=== PATIENT | female | born 1955 | race Hispanic/Latino ===

== ENCOUNTER 2018-10-16 19:25 | Emergency (ER) | payer MEDICARE ==
[~2018-10-16] VITALS: Ht 154.9 cm; Wt 99.8 kg
[2018-10-16] MEDS ORDERED: CLONIDINE HCL 0.2 MG TAB PO NR (20:00)
[2018-10-16] MEDS ORDERED: LISINOPRIL 20 MG TAB PO NR (20:00)
[2018-10-16] MEDS ORDERED: NORVASC5 MG PO (21:56)
[2018-10-16 21:57] VITALS: BP 129/52
== END 2018-10-16 22:05 | disposition home or self-care (01) ==
LOC: ER 19:25
DX: I16.0 Hypertensive urgency (principal); E66.9 Obesity, unspecified; Z68.41 Body mass index [BMI] 40.0-44.9, adult; T46.4X6A Underdosing of angiotensin-converting-enzyme inhibitors, initial encounter; T50.2X6A Underdosing of carbonic-anhydrase inhibitors, benzothiadiazides and other diuretics, initial encounter; E11.9 Type 2 diabetes mellitus without complications
CPT/HCPCS: 36415; 82948; 99283

== ENCOUNTER 2019-01-21 22:50 | Emergency (ER) | payer MEDICARE ==
[~2019-01-21] VITALS: Ht 154.9 cm; Wt 99.8 kg
[~2019-01-21 22:50] MED LIST: NORVASC5 MG PO
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
--- OUTSIDE RECORDS SUMMARY | 2019-01-21 22:54 | XMS REPORT | Summary of Care ---
Author Author [facility] Organization [facility] Address Unknown Phone Unavailable Encounter HQ Soha(ARIK) [id number] Date(s): 12/24/18 - 12/25/18 [facility] [address] [employer] provided by [employer] [place] [address]- Discharge Disposition: Home or Self Care Attending Physician: Beti Ma MD Admitting Physician: Beti Ma MD Vital Signs 1 2 3 Most recent to oldest [Reference Range]: 154.94 cm (12/25/18 1:28 AM) 152.4 cm (12/24/18 8:53 PM) Height 97.4 DegF (12/25/18 11:22 AM) 97.2 DegF (12/25/18 7:13 AM) 98.2 DegF (12/25/18 3:20 AM) Temperature Oral [96.4-99.1 DegF] 137/69 mmHg (12/25/18 11:22 AM) 144/64 mmHg *HI* (12/25/18 7:13 AM) 130/69 mmHg (12/25/18 3:20 AM) Blood Pressure [90-140/60-90 mmHg] 18 BRMIN (12/25/18 11:22 AM) 18 BRMIN (12/25/18 7:13 AM) 18 BRMIN (12/25/18 3:20 AM) Respiratory Rate [14-20 BRMIN] 73 bpm (12/25/18 11:22 AM) 69 bpm (12/25/18 7:13 AM) 74 bpm (12/25/18 3:20 AM) Peripheral Pulse Rate [60-100 bpm] 94.545 kg (12/25/18 1:28 AM) 93.182 kg (12/24/18 8:53 PM) Weight 39.38 m2 (12/25/18 1:28 AM) 40.12 m2 (12/24/18 8:53 PM) Body Mass Index Problem List No data available for this section Allergies, Adverse Reactions, Alerts No Known Medication Allergies Medications amLODIPine 10 mg, Route: PO, Drug form: TAB, Daily, Dosing Weight 94.545, kg, Start date: 0 12/25/18 9:00:00 CDT, Duration: 30 day, Stop date: 01/23/19 9:00:00 CDT Start Date: 12/25/18 Stop Date: 12/25/18 Status: Canceled amLODIPine 10 mg oral tablet 10 mg=1 tab, PO, Daily, # 30 tab, 0 Refill(s) Start Date: 12/25/18 Status: Ordered cloNIDine 0.1 mg=1 tab, PO, BID, # 30 tab, 0 Refill(s) Start Date: 12/25/18 Stop Date: 01/09/19 Status: Ordered cloNIDine 0.1 mg, 1 tab, Route: PO, Drug form: TAB, BID, Dosing Weight 94.545, kg, Start d ate: 12/25/18 9:00:00 CDT, Duration: 30 day, Stop date: 01/23/19 17:00:00 CDT Notes: (Same As: Gorge) Start Date: 12/25/18 Stop Date: 12/25/18 Status: Discontinued Dextrose 50% Syringe 12.5 gm, 25 mL, Route: IVP, Drug Form: INJ, Dosing Weight 94.545, kg, PRN, PRN B lood Glucose Results, Start date: 12/25/18 2:07:00 CDT, Duration: 30 day, Stop d ate: 01/24/19 2:06:00 CDT Start Date: 12/25/18 Stop Date: 12/25/18 Status: Discontinued Dextrose 50% Syringe 25 gm, 50 mL, Route: IVP, Drug Form: INJ, Dosing Weight 94.545, kg, PRN, PRN Blo od Glucose Results, Start date: 12/25/18 2:07:00 CDT, Duration: 30 day, Stop james e: 01/24/19 2:06:00 CDT Start Date: 12/25/18 Stop Date: 12/25/18 Status: Discontinued famotidine 20 mg, 1 tab, Route: PO, Drug form: TAB, Q12H, Start date: 12/25/18 9:00:00 CDT, Duration: 30 day, Stop date: 01/23/19 21:00:00 CDT Notes: (Same as: Pepcid) Start Date: 12/25/18 Stop Date: 12/25/18 Status: Discontinued glucagon 1 mg, Route: IM, Drug form: PDR/INJ, PRN, Dosing Weight 94.545, kg, PRN Blood Gl ucose Results, Start date: 12/25/18 2:07:00 CDT, Duration: 30 day, Stop date: 2:06:00 CDT Start Date: 12/25/18 Stop Date: 12/25/18 Status: Discontinued heparin 5,000 unit, 1 mL, Route: SUB-Q, Drug form: INJ, Q8H, Dosing Weight 94.545, kg, S tart date: 12/25/18 8:00:00 CDT, Duration: 30 day, Stop date: 01/24/19 0:00:00 C DT Notes: porcine heparin Start Date: 12/25/18 Stop Date: 12/25/18 Status: Discontinued hydrALAZINE 50 mg oral tablet 50 mg=1 tab, PO, BID, 0 Refill(s) Start Date: 12/25/18 Status: Ordered hydrALAZINE 50 mg oral tablet 50 mg, 1 tab, Route: PO, Drug form: TAB, BID, Dosing Weight 94.545, kg, Start da te: 12/25/18 9:00:00 CDT, Duration: 30 day, Stop date: 01/23/19 17:00:00 CDT Start Date: 12/25/18 Stop Date: 12/25/18 Status: Canceled insulin lispro 4 unit, 0.04 mL, Route: SUB-Q, Drug form: SOLN, Bedtime, Dosing Weight 94.545, k g, PRN Blood Glucose Results, Start date: 12/25/18 2:07:00 CDT, Duration: 30 day , Stop date: 01/24/19 2:06:00 CDT Notes: (Same as: Humalog) Roll in palms of hands gently; Do not shake vigorously . WASTE: F/P - Black; E - Municipal Trash BinStable for 28 days at room [facility].Expires in days from Date Start Date: 12/25/18 Stop Date: 12/25/18 Status: Discontinued insulin lispro 5 unit, 0.05 mL, Route: SUB-Q, Drug form: SOLN, TID-Before Meals, Dosing Weight 94.545, kg, PRN Blood Glucose Results, Start date: 12/25/18 2:07:00 CDT, Duratio n: 30 day, Stop date: 01/24/19 2:06:00 CDT Notes: (Same as: Humalog) Roll in palms of hands gently; Do not shake vigorously . WASTE: F/P - Black; E - Municipal Trash BinStable for 28 days at room [facility].Expires in days from Date Start Date: 12/25/18 Stop Date: 12/25/18 Status: Discontinued insulin lispro 2 unit, 0.02 mL, Route: SUB-Q, Drug form: SOLN, Bedtime, Dosing Weight 94.545, k g, PRN Blood Glucose Results, Start date: 12/25/18 2:07:00 CDT, Duration: 30 day , Stop date: 01/24/19 2:06:00 CDT Notes: (Same as: Humalog) Roll in palms of hands gently; Do not shake vigorously . WASTE: F/P - Black; E - Municipal Trash BinStable for 28 days at room [facility].Expires in days from Date Start Date: 12/25/18 Stop Date: 12/25/18 Status: Discontinued insulin lispro 3 unit, 0.03 mL, Route: SUB-Q, Drug form: SOLN, Bedtime, Dosing Weight 94.545, k g, PRN Blood Glucose Results, Start date: 12/25/18 2:07:00 CDT, Duration: 30 day , Stop date: 01/24/19 2:06:00 CDT Notes: (Same as: Humalog) Roll in palms of hands gently; Do not shake vigorously . WASTE: F/P - Black; E - Municipal Trash BinStable for 28 days at room [facility].Expires in days from Date Start Date: 12/25/18 Stop Date: 12/25/18 Status: Discontinued insulin lispro 1 unit, 0.01 mL, Route: SUB-Q, Drug form: SOLN, Bedtime, Dosing Weight 94.545, k g, PRN Blood Glucose Results, Start date: 12/25/18 2:07:00 CDT, Duration: 30 day , Stop date: 01/24/19 2:06:00 CDT Notes: (Same as: Humalog) Roll in palms of hands gently; Do not shake vigorously . WASTE: F/P - Black; E - Municipal Trash BinStable for 28 days at room [facility].Expires in days from Date Start Date: 12/25/18 Stop Date: 12/25/18 Status: Discontinued insulin lispro 1 unit, 0.01 mL, Route: SUB-Q, Drug form: SOLN, TID-Before Meals, Dosing Weight 94.545, kg, PRN Blood Glucose Results, Start date: 12/25/18 2:07:00 CDT, Duratio n: 30 day, Stop date: 01/24/19 2:06:00 CDT Notes: (Same as: Humalog) Roll in palms of hands gently; Do not shake vigorously . WASTE: F/P - Black; E - Municipal Trash BinStable for 28 days at room [facility].Expires in days from Date Start Date: 12/25/18 Stop Date: 12/25/18 Status: Discontinued insulin lispro 2 unit, 0.02 mL, Route: SUB-Q, Drug form: SOLN, TID-Before Meals, Dosing Weight 94.545, kg, PRN Blood Glucose Results, Start date: 12/25/18 2:07:00 CDT, Duratio n: 30 day, Stop date: 01/24/19 2:06:00 CDT Notes: (Same as: Humalog) Roll in palms of hands gently; Do not shake vigorously . WASTE: F/P - Black; E - Municipal Trash BinStable for 28 days at [facility].Expires in days from Date Start Date: 12/25/18 Stop Date: 12/25/18 Status: Discontinued insulin lispro 3 unit, 0.03 mL, Route: SUB-Q, Drug form: SOLN, TID-Before Meals, Dosing Weight 94.545, kg, PRN Blood Glucose Results, Start date: 12/25/18 2:07:00 CDT, Duratio n: 30 day, Stop date: 01/24/19 2:06:00 CDT Notes: (Same as: Humalog) Roll in palms of hands gently; Do not shake vigorously . WASTE: F/P - Black; E - Municipal Trash BinStable for 28 days at [facility].Expires in days from Date Start Date: 12/25/18 Stop Date: 12/25/18 Status: Discontinued insulin lispro 4 unit, 0.04 mL, Route: SUB-Q, Drug form: SOLN, TID-Before Meals, Dosing Weight 94.545, kg, PRN Blood Glucose Results, Start date: 12/25/18 2:07:00 CDT, Duratio n: 30 day, Stop date: 01/24/19 2:06:00 CDT Notes: (Same as: Humalog) Roll in palms of hands gently; Do not shake vigorously . WASTE: F/P - Black; E - Municipal Trash BinStable for 28 days at [facility].Expires in days from Date Start Date: 12/25/18 Stop Date: 12/25/18 Status: Discontinued Lactated Ringers (Bolus) IV 500 mL, 500 ml/hr, Infuse Over: 1 hr, Route: IV, 500, Drug form: INJ, ONCE, Prio rity: STAT, Dosing Weight 94.545 kg, Start date: 12/25/18 2:34:00 CDT, Stop date : 12/25/18 2:34:00 CDT Start Date: 12/25/18 Stop Date: 12/25/18 Status: Completed metFORMIN 1,000 mg, PO, BID, 0 Refill(s) Start Date: 12/25/18 Status: Ordered metoclopramide 5 mg oral tablet See Instructions, Take 1/2 tab BID, PRN, 0 Refill(s) Start Date: 12/25/18 Status: Ordered QUEtiapine 25 mg, 1 tab, Route: PO, Drug form: TAB, Bedtime, Dosing Weight 94.545, kg, Star t date: 12/25/18 21:00:00 CDT, Duration: 30 day, Stop date: 01/23/19 21:00:00 CD T Notes: (Same as: SEROquel) Start Date: 12/25/18 Stop Date: 12/25/18 Status: Canceled QUEtiapine 25 mg oral tablet 25 mg=1 tab, PO, Bedtime, 0 Refill(s) Start Date: 12/25/18 Status: Ordered ranitidine 150 mg oral tablet 150 mg, 1 tab, Route: PO, Drug form: TAB, BID, Dosing Weight 94.545, kg, Start d ate: 12/25/18 9:00:00 CDT, Duration: 30 day, Stop date: 01/23/19 17:00:00 CDT Start Date: 12/25/18 Stop Date: 12/25/18 Status: Deleted ranitidine 150 mg oral tablet 150 mg=1 tab, PO, BID, PRN for gastritis, # 20 tab, 0 Refill(s) Start Date: 12/25/18 Stop Date: 01/04/19 Status: Ordered Tylenol 650 mg, Route: PO, Drug form: TAB, ONCE, Dosing Weight 93.182, kg, Priority: STA T, Start date: 12/25/18 0:08:00 CDT, Stop date: 12/25/18 0:08:00 CDT Start Date: 12/25/18 Stop Date: 12/25/18 Status: Completed Vitamin D2 50,000 IntlUnit, 1 cap, Route: PO, Drug form: CAP, QMon, Dosing Weight 94.545, k g, Start date: 12/27/18 9:00:00 CDT, Duration: 30 day, Stop date: 01/24/19 9:00: 00 CDT Notes: (Same as: Vitamin D) "Do Not Crush" Start Date: 12/27/18 Stop Date: 12/25/18 Status: Canceled Vitamin D2 50,000 intl units oral capsule 50,000 IntlUnit=1 cap, PO, QMon, 0 Refill(s) Start Date: 12/25/18 Status: Ordered Results 1 2 3 Most recent to oldest [Reference Range]: 2.8 K/CMM (12/24/18 10:45 PM) Neutrophils # [1.5-8.1 K/CMM] 2.8 K/CMM (12/24/18 10:45 PM) Lymphocytes # [1.0-5.5 K/CMM] 0.6 K/CMM (12/24/18 10:45 PM) Monocytes # [0.0-0.8 K/CMM] 0.3 K/CMM (12/24/18 10:45 PM) Eosinophils # [0.0-0.5 K/CMM] 85 mL/min/1.73m2 1 *NA* (12/25/18 4:43 AM) 52 mL/min/1.73m2 2 *NA* (12/24/18 10:45 PM) eGFR 8.1 mEq/L *LOW* (12/25/18 4:43 AM) 8.9 mEq/L *LOW* (12/24/18 10:45 PM) AGAP [10.0-20.0 mEq/L] 0.5 % (12/24/18 10:45 PM) Basophils [0.0-1.0 %] 25 mg/dL *HI* (12/25/18 4:43 AM) 28 mg/dL *HI* (12/24/18 10:45 PM) BUN [7-22 mg/dL] 8.7 mg/dL (12/25/18 4:43 AM) 9.3 mg/dL (12/24/18 10:45 PM) Calcium Lvl [8.5-10.5 mg/dL] 111 mEq/L *HI* (12/25/18 4:43 AM) 109 mEq/L (12/24/18 10:45 PM) Chloride Lvl [95-109 mEq/L] 27 mEq/L (12/25/18 4:43 AM) 30 mEq/L (12/24/18 10:45 PM) CO2 [24-32 mEq/L] 0.74 mg/dL (12/25/18 4:43 AM) 1.12 mg/dL (12/24/18 10:45 PM) Creatinine Lvl [0.50-1.40 mg/dL] 5.1 % *HI* (12/24/18 10:45 PM) Eosinophils [0.0-4.0 %] 135 mg/dL *HI* (12/25/18 4:43 AM) 176 mg/dL *HI* (12/24/18 10:45 PM) Glucose Lvl [70-99 mg/dL] 31.8 % *LOW* (12/24/18 10:45 PM) Hct [36.0-48.0 %] 10.8 g/dL *LOW* (12/24/18 10:45 PM) Hgb [12.0-16.0 g/dL] 0.91 (12/24/18 10:45 PM) INR [0.85-1.17] 4.1 mEq/L (12/25/18 4:43 AM) 4.9 mEq/L (12/24/18 10:45 PM) Potassium Lvl [3.5-5.1 mEq/L] 42.4 % *HI* (12/24/18 10:45 PM) Lymphocytes [20.0-40.0 %] 30.4 pg (12/24/18 10:45 PM) MCH [27.0-31.0 pg] 33.9 g/dL (12/24/18 10:45 PM) MCHC [32.0-36.0 g/dL] 89.7 fL (12/24/18 10:45 PM) MCV [80.0-98.0 fL] 8.5 % (12/24/18 10:45 PM) Monocytes [2.0-12.0 %] 8.3 fL (12/24/18 10:45 PM) MPV [7.4-10.4 fL] 142 mEq/L (12/25/18 4:43 AM) 143 mEq/L (12/24/18 10:45 PM) Sodium Lvl [135-145 mEq/L] 242 K/CMM (12/24/18 10:45 PM) Platelet [133-450 K/CMM] 43.5 % *LOW* (12/24/18 10:45 PM) Segs [45.0-75.0 %] 12.1 seconds (12/24/18 10:45 PM) PT [12.0-14.7 seconds] 31.5 seconds (12/24/18 10:45 PM) PTT [22.9-35.8 seconds] 3.55 M/CMM *LOW* (12/24/18 10:45 PM) RBC [4.20-5.40 M/CMM] 14.4 % (12/24/18 10:45 PM) RDW [11.5-14.5 %] 0.03 ng/mL (12/25/18 10:50 AM) 0.03 ng/mL (12/25/18 4:43 AM) 0.02 ng/mL (12/24/18 10:45 PM) Troponin-I [0.00-0.40 ng/mL] Occasional /HPF (12/24/18 9:13 PM) UA Bacteria [None Seen /HPF] Negative *NA* (12/24/18 9:13 PM) UA Bili [Negative] Moderate *ABN* (12/24/18 9:13 PM) UA Blood [Negative] Yellow *NA* (12/24/18 9:13 PM) UA Color [Yellow] 100 mg/dL *ABN* (12/24/18 9:13 PM) UA Glucose [Negative mg/dL] Negative *NA* (12/24/18 9:13 PM) UA Ketones [Negative] Negative (12/24/18 9:13 PM) UA Leuk Est [Negative] Negative (12/24/18 9:13 PM) UA Nitrite [Negative] 6.0 (12/24/18 9:13 PM) UA pH [5.0-8.0] 100 mg/dL *ABN* (12/24/18 9:13 PM) UA Protein [Negative mg/dL] 6-10 /HPF *ABN* (12/24/18 9:13 PM) UA RBC [0-2 /HPF] 1.020 (12/24/18 9:13 PM) UA Spec Grav [<=1.030] Moderate /LPF *ABN* (12/24/18 9:13 PM) UA Sq Epi [Few /LPF] Clear (12/24/18 9:13 PM) UA Turbidity [Clear] 0.2 EU/dL (12/24/18 9:13 PM) UA Urobilinogen [0.1-1.0 EU/dL] 0-2 /HPF (12/24/18 9:13 PM) UA WBC [None Seen /HPF] 6.5 K/CMM (12/24/18 10:45 PM) WBC [3.7-10.4 K/CMM] 1Result Comment: The eGFR is calculated using the [...] from the National Kidney Disease Education Program ( NKDEP) which additionally recommends that when the eGFR is used in patients with extremes of body mass index for purposes of drug dosing, the eGFR should be mul tiplied by the estimated BMI. 2Result Comment: The eGFR is calculated using the [...] from the National Kidney Disease Education Program ( NKDEP) which additionally recommends that when the eGFR is used in patients with extremes of body mass index for purposes of drug dosing, the eGFR should be mul tiplied by the estimated BMI. Immunizations Given and Recorded Vaccine Date Status Refusal Reason pneumococcal 13-valent vaccine 12/25/18 Given Procedures No data available for this section Social History Social History Type Response Substance Abuse Use: None. Alcohol Never Smoking Status Never smoker; Exposure to Tobacco Smoke None; Cigarette Smoking Last 365 Days No; Reg Smoking Cessation Counseling No entered on: 12/25/18 Assessment and Plan Extracted from: Title: History and Physical Author: Traci Parmar MD Date: 12/25/18 63 yo with pmh niddm2, depression, and cataracts admitted for evaluation of chest pain. 1.Chest pain(R07.9) telemetry monitoring. trend troponins. admission ekg without acute ischemic changes. 2.Acute kidney injury(N17.9) LR bolus. ua not c/w uti. monitor renal function. 3.Diabetes mellitus with hyperglycemia(E11.65) ssi & accuchecks. holding home glipizide and metformin. 4.Depression(F32.9) seroquel 5.Hypertension(I10) resume home clonidine. holding home amlodipine and hydralazine. monitor bp. heparin home on discharge.
--- OUTSIDE RECORDS SUMMARY | 2019-01-21 22:54 | XMS REPORT ---
Author [facility] Address Unknown Phone Unavailable Care Team Providers Care End User Support Specialist Name Role Phone Unavailable Unavailable Payers Payer Name Policy Type Policy Number Effective Date Expiration Date Problems This patient has no known problems. Allergies, Adverse Reactions, Alerts This patient has no known allergies or adverse reactions. Medications This patient has no known medications. Encounters Start Date/Time End Date/Time Encounter Type Admission Type Attending [facility] Care Facility Care Department Encounter ID 2019-01-15 18:10:00 2019-01-15 18:10:00 Outpatient [facility] [id number] 2018-12-25 00:02:00 2018-12-25 00:02:00 Outpatient [facility] [id number] Results Test Description Test Time Test Comments Text Results Atomic Results Result Comments SCR MAMM BILATERAL APOLINAR CAD DIGITAL 2018-08-25 13:11:20 - SCR MAMM BILATERAL APOLINAR CAD DIGITALBILATERAL FIRST EVER DIGITAL SCREENING MAMMOGRAM 3D/2D WITH CAD: 08/25/2018CLINICAL: Asymptomatic. Digital breast tomosynthesis was performed in addition to routine CC and MLO views. Current mammographic images were evaluated by either a [employer] M-Vu or a [employer] Image[employer]er CAD (computer aided detection system). No prior exams were available for comparison. The tissue of both breasts is predominantly fatty. No suspicious mass, architectural distortion, malignant type calcification, or lymph node abnormality detected. IMPRESSION: NEGATIVEThere is no mammographic evidence of malignancy. Resume annual screening mammography in one year. Cecilio Ortega M.D. ss/linda:08/25/2018 13:11:20 Tax Compliance Agent: Brooke GONZÁLES, [facility]-FWletter sent: BIRADS 1-2 Normal Mammogram BI-RADS: 1 Negative
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
[2019-01-21] MEDS ORDERED: GLIPIZIDE ER5 MG PO (23:25)
[2019-01-21] MEDS ORDERED: TIZANIDINE HCL4 MG PO (23:25)
[2019-01-21] MEDS ORDERED: CRESTOR10 MG PO (23:25)
[2019-01-21] MEDS ORDERED: CLONIDINE HCL0.1 MG PO (23:25)
[2019-01-21] MEDS ORDERED: METFORMIN HCL500 MG PO (23:25)
[2019-01-21] MEDS ORDERED: LISINOPRIL-HCT1 EACH PO (23:25)
[2019-01-21] MEDS ORDERED: vascepa PO (23:25)
[2019-01-21] MEDS ORDERED: METOCLOPRAMIDE10 MG PO (23:25)
[2019-01-21] MEDS ORDERED: HYDRALAZINE HCL10 MG PO (23:25)
[2019-01-21] MEDS ORDERED: VITAMIN D250000 UNIT PO (23:25)
[2019-01-21] MEDS ORDERED: ONDANSETRON HCL INJ 2MG/ML 2ML 2 MG/ML VIAL IV STA (23:39)
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
[2019-01-21] MEDS ORDERED: ONDANSETRON HCL 4 MG ORAL DISINTEGRATING TAB PO ONE (23:45)
[2019-01-22 00:01] VITALS: BP 141/66
== END 2019-01-22 00:16 | disposition home or self-care (01) ==
LOC: ER 22:50
DX: T78.3XXA Angioneurotic edema, initial encounter (principal); R51 Headache; I10 Essential (primary) hypertension; E11.9 Type 2 diabetes mellitus without complications
CPT/HCPCS: 70450; 99283; Q0162

== ENCOUNTER 2020-08-27 13:16 | Emergency (ER) | payer MEDICARE ==
[~2020-08-27] VITALS: Ht 154.9 cm; Wt 99.8 kg
[~2020-08-27 13:16] MED LIST changes: +CLONIDINE HCL0.1 MG PO; +CRESTOR10 MG PO; +GLIPIZIDE ER5 MG PO; +HYDRALAZINE HCL10 MG PO; +LISINOPRIL-HCT1 EACH PO; +METFORMIN HCL500 MG PO; +METOCLOPRAMIDE10 MG PO; +TIZANIDINE HCL4 MG PO; +VITAMIN D250000 UNIT PO; +vascepa PO
== END 2020-08-27 16:26 | disposition home or self-care (01) ==
LOC: ER 14:20
DX: B34.9 Viral infection, unspecified (principal); R05 Cough; I10 Essential (primary) hypertension; E11.9 Type 2 diabetes mellitus without complications; Z11.52 Encounter for screening for COVID-19
CPT/HCPCS: 71045; 99283; U0002

== ENCOUNTER 2021-04-12 17:48 | Emergency (ER) | payer MEDICARE ==
[~2021-04-12] VITALS: Ht 154.9 cm; Wt 99.8 kg
[2021-04-12 18:54] LABS: BASOPHILS % 0.8 % (0.0-1.0); EOSINOPHILS # (AUTO) 0.4 (0.0-0.4); EOSINOPHILS % 8.4 % (0.0-6.0); HEMATOCRIT 30.8 % (34.2-44.1); HEMOGLOBIN 9.7 g/dL (12.0-16.0); LYMPHOCYTES # (AUTO) 1.8 (1.0-3.2); LYMPHOCYTES % 33.8 % (18.0-39.1); MEAN CORPUSCULAR HEMOGLOBIN 28.5 pg (28-32); MEAN CORPUSCULAR HGB CONC 31.5 g/dL (31-35); MEAN CORPUSCULAR VOLUME 90.6 fL (81-99); MONOCYTES # (AUTO) 0.4 (0.2-0.8); MONOCYTES % 7.7 % (4.4-11.3); NEUTROPHILS # (AUTO) 2.6 (2.1-6.9); NEUTROPHILS % 49.1 % (38.7-80.0); PLATELET COUNT 255 x10e3/uL (140-360); RED CELL DISTRIBUTION WIDTH 13.7 % (11.7-14.4)
[2021-04-12 19:04] LABS: INR 0.91; PROTHROMBIN TIME 12.4 seconds (11.9-14.5)
[2021-04-12 19:05] LABS: PARTIAL THROMBOPLASTIN TIME 32.9 seconds (23.8-35.5)
[2021-04-12 19:12] LABS: ANION GAP 14.9 mmol/L (8-16); CALCIUM 8.8 mg/dL (8.4-10.2); CREATININE, SERUM 1.32 mg/dL (0.57-1.11); POTASSIUM 4.9 mmol/L (3.5-5.1)
== END 2021-04-12 20:46 | disposition home or self-care (01) ==
LOC: ER 18:36
DX: M54.12 Radiculopathy, cervical region (principal); R51.9 Headache, unspecified; I10 Essential (primary) hypertension; E11.9 Type 2 diabetes mellitus without complications; Z95.0 Presence of cardiac pacemaker; S40.021A Contusion of right upper arm, initial encounter; Z79.84 Long term (current) use of oral hypoglycemic drugs
CPT/HCPCS: 36415; 70450; 72125; 80048; 85025; 85610; 85730; 99284

== ENCOUNTER 2021-05-12 11:15 | Inpatient (IN) | payer MEDICARE ==
[~2021-05-12] VITALS: Ht 154.9 cm; Wt 95.3 kg
[2021-05-12] MEDS ORDERED: ASPIRIN 81 MG CHEW TAB PO ONE (12:15)
[2021-05-12 12:19] LABS: BASOPHILS % 0.6 % (0.0-1.0); EOSINOPHILS # (AUTO) 0.2 (0.0-0.4); EOSINOPHILS % 4.2 % (0.0-6.0); HEMATOCRIT 30.4 % (34.2-44.1); HEMOGLOBIN 9.4 g/dL (12.0-16.0); LYMPHOCYTES # (AUTO) 0.9 (1.0-3.2); LYMPHOCYTES % 18.2 % (18.0-39.1); MEAN CORPUSCULAR HEMOGLOBIN 28.2 pg (28-32); MEAN CORPUSCULAR HGB CONC 30.9 g/dL (31-35); MEAN CORPUSCULAR VOLUME 91.3 fL (81-99); MONOCYTES # (AUTO) 0.2 (0.2-0.8); MONOCYTES % 4.7 % (4.4-11.3); NEUTROPHILS # (AUTO) 3.7 (2.1-6.9); NEUTROPHILS % 72.1 % (38.7-80.0); PLATELET COUNT 294 x10e3/uL (140-360); RED BLOOD COUNT 3.33 x10e6/uL (3.6-5.1); RED CELL DISTRIBUTION WIDTH 14.9 % (11.7-14.4)
[2021-05-12 12:25] LABS: INR 0.95; PROTHROMBIN TIME 12.9 seconds (11.9-14.5)
[2021-05-12 12:26] LABS: PARTIAL THROMBOPLASTIN TIME 31.5 seconds (23.8-35.5)
[2021-05-12 12:34] LABS: ALBUMIN 2.9 g/dL (3.5-5.0); ALBUMIN/GLOBULIN RATIO 0.7 (0.8-2.0); CALCIUM 8.6 mg/dL (8.4-10.2); CREATININE, SERUM 1.6 mg/dL (0.57-1.11)
[2021-05-12 12:40] LABS: CREATINE KINASE MB 3.5 ng/mL (0-5.0)
[2021-05-12] MEDS: CEFTRIAXONE 1 GM in SODIUM CHLORIDE 0.9% 50ML 50 ML IV SCH (15:31)
[2021-05-12] MEDS ORDERED: FUROSEMIDE INJ 10 MG/ML 2 ML VIAL IV NR (16:15)
[2021-05-12] MEDS ORDERED: DEXTROSE 50% SYRINGE 50 ML IV PRN (16:45)
[2021-05-12] MEDS ORDERED: MORPHINE SULFATE INJ 2 MG/ML SYR IV PRN (16:45)
[2021-05-12] MEDS: INSULIN LISPRO 100 UNIT/1 ML 3ML VIAL SQ SCH ×2 (17:00→21:00)
[2021-05-12] MEDS ORDERED: POLYETHYLENE GLYCOL 3350 17 GM PACK PO PRN (21:00)
[2021-05-12] MEDS ORDERED: METOPROLOL TARTRATE INJ 1 MG/ML VIAL IV PRN (21:00)
[2021-05-12] MEDS: FAMOTIDINE 20 MG/2 ML VIAL IV SCH (21:12)
[2021-05-12] MEDS: ACETAMINOPHEN 325 MG TAB PO PRN (21:59)
[2021-05-13] VITALS (8 sets, daily range): BP systolic 109–174; BP diastolic 47–78
[2021-05-13] MEDS: FAMOTIDINE 20 MG/2 ML VIAL IV SCH ×2 (05:43→17:21)
[2021-05-13] MEDS: FUROSEMIDE INJ 10 MG/ML 2 ML VIAL IV SCH ×2 (05:43→16:39)
[2021-05-13] MEDS ORDERED: TIZANIDINE HCL 4 MG TAB PO PRN (07:15)
[2021-05-13] MEDS ORDERED: METOCLOPRAMIDE HCL 10 MG TAB PO PRN (07:15)
[2021-05-13] MEDS: INSULIN LISPRO 100 UNIT/1 ML 3ML VIAL SQ SCH ×4 (07:30→21:00)
[2021-05-13] MEDS: HYDROCHLOROTHIAZIDE 25 MG TAB PO SCH (08:51)
[2021-05-13] MEDS: CLONIDINE HCL 0.1 MG TAB PO SCH ×2 (08:52→16:41)
[2021-05-13] MEDS: LISINOPRIL 20 MG TAB PO SCH (08:52)
[2021-05-13] MEDS: DOCUSATE SODIUM 100 MG CAP PO SCH ×2 (08:53→16:41)
[2021-05-13] MEDS: HYDRALAZINE HCL 10 MG TAB PO SCH ×2 (08:53→16:40)
[2021-05-13] MEDS: AMLODIPINE BESYLATE 10 MG TAB PO SCH (08:53)
[2021-05-13] MEDS: ASPIRIN 81 MG ENTERIC COATED PO SCH (08:53)
[2021-05-13] MEDS: GLIPIZIDE 5 MG TAB ER PO SCH (08:53)
[2021-05-13] MEDS ORDERED: SODIUM CHLORIDE 0.9% 250ML 250 ML ONE (09:07)
[2021-05-13] MEDS: CEFTRIAXONE 1 GM in SODIUM CHLORIDE 0.9% 50ML 50 ML IV SCH (09:09)
[2021-05-13] MEDS: METFORMIN HCL 500 MG TAB PO SCH ×2 (09:09→16:41)
[2021-05-13 09:14] LABS: BASOPHILS % 0.5 % (0.0-1.0); EOSINOPHILS # (AUTO) 0.4 (0.0-0.4); EOSINOPHILS % 6.4 % (0.0-6.0); HEMATOCRIT 31.5 % (34.2-44.1); LYMPHOCYTES # (AUTO) 1.3 (1.0-3.2); LYMPHOCYTES % 23.9 % (18.0-39.1); MEAN CORPUSCULAR HEMOGLOBIN 28.8 pg (28-32); MEAN CORPUSCULAR HGB CONC 31.7 g/dL (31-35); MEAN CORPUSCULAR VOLUME 90.8 fL (81-99); MONOCYTES # (AUTO) 0.4 (0.2-0.8); MONOCYTES % 6.6 % (4.4-11.3); NEUTROPHILS # (AUTO) 3.5 (2.1-6.9); NEUTROPHILS % 62.4 % (38.7-80.0); PLATELET COUNT 279 x10e3/uL (140-360); RED BLOOD COUNT 3.47 x10e6/uL (3.6-5.1)
[2021-05-13] MEDS: ONDANSETRON HCL INJ 2MG/ML 2ML 2 MG/ML VIAL IV PRN (09:24)
[2021-05-13 09:44] LABS: PHOSPHORUS 4.5 MG/DL (2.3-4.7)
[2021-05-13 09:47] LABS: ALBUMIN 2.9 g/dL (3.5-5.0); ALBUMIN/GLOBULIN RATIO 0.7 (0.8-2.0); ANION GAP 15.1 mmol/L (8-16); CALCIUM 9.2 mg/dL (8.4-10.2); CHOL/HDL RATIO 6.9 (3.0-3.6); CREATININE, SERUM 1.48 mg/dL (0.57-1.11); POTASSIUM 5.1 mmol/L (3.5-5.1)
[2021-05-13 09:57] LABS: CREATINE KINASE MB 3.4 ng/mL (0-5.0)
[2021-05-13 10:08] LABS: THYROID STIMULATING HORMONE 1.417 uIU/mL (0.350-4.940)
[2021-05-13] MEDS ORDERED: SOD POLYSTYRENE SULFONATE SUSP 15 GM/60 ML BTL PO ONE (12:45)
[2021-05-13 15:17] LABS: CREATINE KINASE MB 2.6 ng/mL (0-5.0)
[2021-05-13] MEDS: VASCEPA 2 GM PO SCH (16:41)
[2021-05-13] MEDS: SIMVASTATIN 20 MG TAB PO SCH (21:35)
[2021-05-14] VITALS (8 sets, daily range): BP systolic 108–167; BP diastolic 40–72
[2021-05-14] MEDS: ACETAMINOPHEN 325 MG TAB PO PRN ×2 (01:00→15:01)
[2021-05-14] MEDS: FUROSEMIDE INJ 10 MG/ML 2 ML VIAL IV SCH (05:34)
[2021-05-14] MEDS: FAMOTIDINE 20 MG/2 ML VIAL IV SCH ×2 (05:35→17:37)
[2021-05-14 06:33] LABS: ANION GAP 11.9 mmol/L (8-16); CALCIUM 8.1 mg/dL (8.4-10.2); CREATININE, SERUM 1.82 mg/dL (0.57-1.11); POTASSIUM 4.9 mmol/L (3.5-5.1)
[2021-05-14] MEDS: INSULIN LISPRO 100 UNIT/1 ML 3ML VIAL SQ SCH ×4 (07:30→21:00)
[2021-05-14 08:36] LABS: BASOPHILS % 0.9 % (0.0-1.0); EOSINOPHILS # (AUTO) 0.6 (0.0-0.4); EOSINOPHILS % 12.5 % (0.0-6.0); HEMATOCRIT 30.9 % (34.2-44.1); HEMOGLOBIN 9.3 g/dL (12.0-16.0); LYMPHOCYTES # (AUTO) 1.3 (1.0-3.2); MEAN CORPUSCULAR HEMOGLOBIN 28.3 pg (28-32); MEAN CORPUSCULAR HGB CONC 30.1 g/dL (31-35); MEAN CORPUSCULAR VOLUME 93.9 fL (81-99); MONOCYTES # (AUTO) 0.4 (0.2-0.8); MONOCYTES % 8.2 % (4.4-11.3); NEUTROPHILS # (AUTO) 2.1 (2.1-6.9); NEUTROPHILS % 48.2 % (38.7-80.0); PLATELET COUNT 259 x10e3/uL (140-360); RED BLOOD COUNT 3.29 x10e6/uL (3.6-5.1); RED CELL DISTRIBUTION WIDTH 15.1 % (11.7-14.4)
[2021-05-14] MEDS: GLIPIZIDE 5 MG TAB ER PO SCH (08:46)
[2021-05-14] MEDS: METFORMIN HCL 500 MG TAB PO SCH ×2 (08:46→17:37)
[2021-05-14] MEDS: VASCEPA 2 GM PO SCH ×2 (08:46→17:37)
[2021-05-14] MEDS: ASPIRIN 81 MG ENTERIC COATED PO SCH (08:46)
[2021-05-14] MEDS: HYDRALAZINE HCL 10 MG TAB PO SCH ×2 (08:47→13:11)
[2021-05-14] MEDS: DOCUSATE SODIUM 100 MG CAP PO SCH ×2 (08:47→17:00)
[2021-05-14] MEDS: CLONIDINE HCL 0.1 MG TAB PO SCH ×2 (08:48→17:37)
[2021-05-14] MEDS: HYDROCHLOROTHIAZIDE 25 MG TAB PO SCH (08:48)
[2021-05-14] MEDS: AMLODIPINE BESYLATE 10 MG TAB PO SCH (08:49)
[2021-05-14] MEDS: LISINOPRIL 20 MG TAB PO SCH (08:49)
[2021-05-14] MEDS: CARVEDILOL 12.5 MG TAB PO SCH (13:11)
[2021-05-14] MEDS: FUROSEMIDE INJ 10 MG/ML 4 ML VIAL IV SCH (17:37)
[2021-05-14] MEDS: ONDANSETRON HCL INJ 2MG/ML 2ML 2 MG/ML VIAL IV PRN (17:37)
[2021-05-14] MEDS: SIMVASTATIN 20 MG TAB PO SCH (22:01)
[2021-05-15] VITALS: BP 121/53
[2021-05-15 04:00] VITALS: BP 152/62
[2021-05-15] MEDS: FAMOTIDINE 20 MG/2 ML VIAL IV SCH (05:19)
[2021-05-15] MEDS: FUROSEMIDE INJ 10 MG/ML 4 ML VIAL IV SCH (05:19)
[2021-05-15] MEDS: ACETAMINOPHEN 325 MG TAB PO PRN (05:33)
[2021-05-15] MEDS: INSULIN LISPRO 100 UNIT/1 ML 3ML VIAL SQ SCH (07:30)
[2021-05-15 07:55] VITALS: BP 149/60
[2021-05-15] MEDS: VASCEPA 2 GM PO SCH (08:00)
[2021-05-15 08:23] LABS: ALBUMIN 2.8 g/dL (3.5-5.0); ALBUMIN/GLOBULIN RATIO 0.7 (0.8-2.0); ANION GAP 12.8 mmol/L (8-16); CALCIUM 8.5 mg/dL (8.4-10.2); CREATININE, SERUM 2.04 mg/dL (0.57-1.11); POTASSIUM 4.8 mmol/L (3.5-5.1)
[2021-05-15] MEDS: METFORMIN HCL 500 MG TAB PO SCH (08:28)
[2021-05-15] MEDS: GLIPIZIDE 5 MG TAB ER PO SCH (08:28)
[2021-05-15] MEDS: HYDRALAZINE HCL 10 MG TAB PO SCH (08:28)
[2021-05-15] MEDS: ASPIRIN 81 MG ENTERIC COATED PO SCH (08:28)
[2021-05-15] MEDS: DOCUSATE SODIUM 100 MG CAP PO SCH (08:29)
[2021-05-15] MEDS: CLONIDINE HCL 0.1 MG TAB PO SCH (08:29)
[2021-05-15] MEDS: CARVEDILOL 12.5 MG TAB PO SCH (08:31)
[2021-05-15 10:09] VITALS: BP 149/60
[2021-05-17] MEDS ORDERED: ERGOCALCIFEROL 50,000 UNIT CAP PO SCH (09:00)
== END 2021-05-15 10:49 | disposition left against medical advice (07) | DRG 291 ==
LOC: ER 11:33 → ERHOLD 11:43 → MED/SURG3 05-13 02:16
PROVIDERS: ADMIT Internal Medicine; ATTEND Internal Medicine
DX: I13.0 Hypertensive heart and chronic kidney disease with heart failure and stage 1 through stage 4 chronic kidney disease, or unspecified chronic kidney disease (principal); J18.9 Pneumonia, unspecified organism; I50.23 Acute on chronic systolic (congestive) heart failure; I42.8 Other cardiomyopathies; E78.5 Hyperlipidemia, unspecified; E87.5 Hyperkalemia; D63.8 Anemia in other chronic diseases classified elsewhere; Z95.0 Presence of cardiac pacemaker; N18.30 Chronic kidney disease, stage 3 unspecified; E11.22 Type 2 diabetes mellitus with diabetic chronic kidney disease; E11.65 Type 2 diabetes mellitus with hyperglycemia
CPT/HCPCS: 36415; 71045; 71046; 71250; 80048; 80053; 80061; 82550; 82553; 82948; 83036; 83735; 83880; 84100; 84443; 84484; 85025; 85610; 85730; 87040; 93005; 93306; 99284; J0456; J0696; J1940; J2270; J2405; J7050; U0002